=== PATIENT | female | born 1960 | race Caucasian/White ===

== ENCOUNTER 2019-01-29 17:11 | Emergency (ER) | payer BC ==
[2019-01-29] MEDS ORDERED: Sodium Chloride 0.9% 1000 ML 1,000 ML IV STA (17:24)
--- NOTE | 2019-01-29 17:24 | ERPHSYRPT ---
- History of Present Illness Source: patient Exam Limitations: no limitations Timing/Duration: today, sudden Severity: moderate Character of Deficits: other (left ear decreased hearing with unsteady gait and dizziness) Deficits: off balance Baseline/Normal Cognition: alert oriented x 3 Current Cognition: alert oriented x 3 Baseline Gait: walks w/o assistance Associated Symptoms: nausea, trouble walking, No confusion, No fatigue, No fever , No chills, No loss of consciousness, No vomiting, No weakness, No insomnia, No muscle spasms, No numbness/tingling in legs/feet, No paresthesia, No ringing in ears, No seizures, No slurred speech, No vision changes, No chest pain, No headache <ANDREW LEAL - Last Filed: 01/29/19 19:07> <RUSS BURKETT - Last Filed: 01/29/19 19:22> - History of Present Illness Time Seen by Provider: 01/29/19 17:15 Physician History: Patient had sudden onset of unsteadiness, dizziness, nausea, sweating and left ear decreased hearing prior to coming into the emergency department. (ANDREW LEAL) Allergies/Adverse Reactions: No Known Drug Allergies Allergy (Unverified 01/29/19 17:24) Home Medications: Garlic 1 ea DAILY 01/29/19 [History] Multivitamin [Multivitamins] 1 ea DAILY 01/29/19 [History] - Review of Systems Constitutional: No Fever, No Chills Eyes: No Eye Pain, No Vision Changes Ears, Nose, & Throat: Hearing Changes, No Ear Pain, No Ear Discharge, No Tinnitus, No Nose Congestion, No Nose Discharge, No Hoarse, No Painful Swallowing Respiratory: No Cough, No Dyspnea Cardiac: No Chest Pain, No Edema, No Syncope Abdominal/Gastrointestinal: Nausea, No Abdominal Pain, No Vomiting, No Diarrhea Genitourinary Symptoms: No Dysuria, No Hematuria, No Flank Pain Musculoskeletal: No Back Pain, No Neck Pain Skin: No Rash Neurological: Dizziness, No Focal Weakness, No Headache, No Lethargy, No Paralysis, No Seizure, No Sensory Changes, No Vertigo Psychological: No Anxiety Endocrine: No Symptoms, No Polyuria Hematologic/Lymphatic: No Easy Bleeding, No Easy Bruising All Other Systems: Reviewed and Negative <ANDREW LEAL - Last Filed: 01/29/19 19:07> - Ju[place] Coma Scale Best Eye Response (Juvenal): (4) open spontaneously Best Verbal Response (Juvenal): (5) oriented Best Motor Response (Juvenal): (6) obeys commands [place] Total: 15 - Physical Exam General Appearance: no apparent distress, alert Eye Exam: bilateral eye: PERRL, EOMI Ears, Nose, Throat Exam: normal ENT inspection, moist mucous membranes Neck Exam: normal inspection, non-tender, supple Respiratory: normal breath sounds, lungs clear, airway intact, No respiratory distress Cardiovascular: regular rate/rhythm, normal heart sounds, normal peripheral pulses, capillary refill <2 sec, No edema Gastrointestinal: soft, No tenderness, No distention Back Exam: normal inspection, No CVA tenderness Extremity Exam: normal inspection, No calf tenderness, No pedal edema, No swelling Peripheral Pulses: dorsalis-pedis (R): 2+, dorsalis-pedis (L): 2+ Mental Status: alert, 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 Exam: normal hearing, normal speech, PERRL, tongue midline, No abnormal eye position, No facial droop, No facial weakness Coordination/Gait: normal finger to nose, normal cerebellar function Motor/Sensory: no motor deficit, no sensory deficit DTR: ankle (R): 2+, ankle (L): 2+ Skin Exam: normal color, warm, dry, No rash, No jaundice, No cyanosis SpO2 Interpretation: normal O2 Delivery: Room Air <ANDREW LEAL - Last Filed: 01/29/19 19:07> - Nursing Vital Signs Nursing Vital Signs: Initial Vital Signs Temperature 98.7 F 01/29/19 17:15 Pulse Rate 80 01/29/19 17:15 Respiratory Rate 18 01/29/19 17:15 Blood Pressure 155/90 01/29/19 17:15 O2 Sat by Pulse Oximetry 97 01/29/19 17:15 Pain Scale Pain Intensity 0 - Course Nursing assessment & vital signs reviewed: Yes EKG Interpreted by Me: RATE (77), Sinus Rhythm, NORMAL AXIS, NORMAL INTERVALS, NORMAL QRS, NORMAL ST-T, Other (rare PVC; negative previous EKG available for comparison) - Radiology Exams Chest X-ray Interpretation: Interpreted by me, Reviewed by me, No Pneumonia, No Pneumothorax, Nml Heart Size, No Infiltrates, Nml Mediastinum, Other (negative for any acute cardiopulmonary disease) - CT Exams Head CT Interpretation: No Fracture, No/Intracranial Hemorrhag, Other (per radiologist interpretation: Postoperative changes in the left craniotomy. There is a small focus of encephalomalacia due to the craniotomy site. MRI imaging is recommended to fully assess residual recurrent disease.) <ANDREW LEAL - Last Filed: 01/29/19 19:07> Ordered Tests: Active Orders 24 hr Category Date Time Status Accucheck STAT Care 01/29/19 17:24 Active Nuclear Medicine Technician STAT Care 01/29/19 17:26 Active EKG-ER Only STAT Care 01/29/19 17:24 Active IV Insertion STAT Care 01/29/19 17:24 Active NPO (ED) STAT Care 01/29/19 17:25 Active Pulse Oximetry (ED) STAT Care 01/29/19 17:24 Active CHEST 1 VIEW (PORTABLE) Stat Exams 01/29/19 17:25 Taken HEAD WITHOUT CONTRAST [CT] Stat Exams 01/29/19 17:25 Taken CBC W DIFF Stat Lab 01/29/19 17:30 Completed CMP Stat Lab 01/29/19 17:30 Completed CULTURE,URINE Stat Lab 01/29/19 18:16 Received Lactic Acid Stat Lab 01/29/19 17:43 Results MAGNESIUM Stat Lab 01/29/19 17:30 Completed PROTIME WITH INR Stat Lab 01/29/19 17:30 Completed PTT Stat Lab 01/29/19 17:30 Completed UA W/RFX UR CULTURE Stat Lab 01/29/19 18:16 Completed Medication Summary Discontinued Medications Generic Name Dose Route Start Last Admin Trade Name Freq PRN Reason Stop Dose Admin Diphenhydramine HCl 25 mg 01/29/19 17:26 01/29/19 17:41 Benadryl 50 Mg/Ml IV 01/29/19 17:27 25 mg STAT ONE Administration Diphenhydramine HCl Confirm 01/29/19 17:40 Benadryl 50 Mg/Ml Administered 01/29/19 17:41 Dose 50 mg .ROUTE .STK-MED ONE Sodium Chloride 1,000 mls @ 999 mls/hr 01/29/19 17:24 01/29/19 17:41 Sodium Chloride 0.9% 1000 Ml IV 01/29/19 18:24 999 mls/hr .Q1H1M STA Administration Sodium Chloride Confirm 01/29/19 17:41 Sodium Chloride 0.9% 1000 Ml Administered 01/29/19 17:42 Dose 1,000 mls @ ud .ROUTE .STK-MED ONE Ceftriaxone Sodium/Dextrose 1 g in 50 mls @ 100 mls/hr 01/29/19 18:41 18:47 Rocephin 1 Gm-D5w 50 Ml Bag IV 01/29/19 19:10 100 ml/hr STAT STA 100 mls/hr Administration Ceftriaxone Sodium/Dextrose Confirm 01/29/19 18:45 Rocephin 1 Gm-D5w 50 Ml Bag Administered 01/29/19 18:46 Dose 1 g in 50 mls @ ud IV .STK-MED ONE Potassium Chloride 40 meq 01/29/19 18:18 01/29/19 18:24 Klor Con 10 Meq PO 01/29/19 18:19 40 meq STAT ONE Administration Potassium Chloride Confirm 01/29/19 18:23 Klor Con 10 Meq Administered 01/29/19 18:24 Dose 40 meq PO .STK-MED ONE Lab/Rad Data: Laboratory Result Diagrams 01/29/19 17:30 01/29/19 17:30 Laboratory Results 01/29/19 01/29/19 01/29/19 Range/Units 18:16 17:43 17:30 WBC (4.0-10.5) K/mm3 RBC (4.1-5.4) M/mm3 Hgb (12.0-16.0) gm/dl Hct (35-47) % MCV (78-100) fl MCH (26-32) pg MCHC (32-36) g/dl RDW (11.5-14.0) % Plt Count (150-450) K/mm3 MPV (6-9.5) fl Gran % (36.0-66.0) % Eos # (Auto) (0-0.5) Absolute Lymphs (auto) (1.0-4.6) Absolute Monos (auto) (0.0-1.3) Lymphocytes % (24.0-44.0) % Monocytes % (0.0-12.0) % Eosinophils % (0.00-5.0) % Basophils % (0.0-0.4) % Absolute Granulocytes (1.4-6.9) Basophils # (0-0.4) PT (9.95-12.35) SECONDS INR (0.8-3.0) APTT (25.3-37.0) SECONDS Sodium (137-145) mmol/L Potassium (3.5-5.1) mmol/L Chloride (98-107) mmol/L Carbon Dioxide (22-30) mmol/L Anion Gap (5-15) MEQ/L BUN (7-17) mg/dL Creatinine (0.52-1.04) mg/dL Estimated GFR ML/MIN Glucose (74-106) mg/dL Lactic Acid 2.4 H (0.4-2.0) Calcium (8.4-10.2) mg/dL Magnesium 2.2 (1.6-2.3) mg/dL Total Bilirubin (0.2-1.3) mg/dL AST (14-36) U/L ALT (0-35) U/L Alkaline Phosphatase (38-126) U/L Serum Total Protein (6.3-8.2) g/dL Albumin (3.5-5.0) g/dL Urine Color YELLOW (YELLOW) Urine Appearance SLIGHTLY CLOUDY (CLEAR) Urine pH 5.0 (5-6) Ur Specific [place] 1.020 (1.005-1.025) Urine Protein NEGATIVE (Negative) Urine Ketones TRACE (NEGATIVE) Urine Blood NEGATIVE (0-5) Viet/ul Urine Nitrite NEGATIVE (NEGATIVE) Urine Bilirubin NEGATIVE (NEGATIVE) Urine Urobilinogen NEGATIVE (0-1) mg/dL Ur Leukocyte Esterase MODERATE (NEGATIVE) Urine WBC (Auto) 6-10 (0-5) /HPF Urine RBC (Auto) NONE (0-2) /HPF U Epithel Cells (Auto) NONE (FEW) /HPF Urine Bacteria (Auto) NONE (NEGATIVE) /HPF Urine Mucus (Auto) SLIGHT (NEGATIVE) /HPF Urine Culture Reflexed YES (NO) Urine Glucose NEGATIVE (NEGATIVE) mg/dL 01/29/19 01/29/19 01/29/19 Range/Units 17:30 17:30 17:30 WBC 7.4 (4.0-10.5) K/mm3 RBC 4.56 (4.1-5.4) M/mm3 Hgb 14.2 (12.0-16.0) gm/dl Hct 44.3 (35-47) % MCV 97.1 (78-100) fl MCH 31.1 (26-32) pg MCHC 32.1 (32-36) g/dl RDW 13.1 (11.5-14.0) % Plt Count 233 (150-450) K/mm3 MPV 11.7 H (6-9.5) fl Gran % 54.8 (36.0-66.0) % Eos # (Auto) 0.04 (0-0.5) Absolute Lymphs (auto) 2.66 (1.0-4.6) Absolute Monos (auto) 0.62 (0.0-1.3) Lymphocytes % 36.0 (24.0-44.0) % Monocytes % 8.4 (0.0-12.0) % Eosinophils % 0.5 (0.00-5.0) % Basophils % 0.3 (0.0-0.4) % Absolute Granulocytes 4.04 (1.4-6.9) Basophils # 0.02 (0-0.4) PT 11.7 (9.95-12.35) SECONDS INR 1.03 (0.8-3.0) APTT 31.0 (25.3-37.0) SECONDS Sodium 143 (137-145) mmol/L Potassium 3.4 L (3.5-5.1) mmol/L Chloride 111 H (98-107) mmol/L Carbon Dioxide 21 L (22-30) mmol/L Anion Gap 15.0 (5-15) MEQ/L BUN 15 (7-17) mg/dL Creatinine 0.71 (0.52-1.04) mg/dL Estimated GFR > 60.0 ML/MIN Glucose 137 H (74-106) mg/dL Lactic Acid (0.4-2.0) Calcium 9.6 (8.4-10.2) mg/dL Magnesium (1.6-2.3) mg/dL Total Bilirubin 0.50 (0.2-1.3) mg/dL AST 24 (14-36) U/L ALT 18 (0-35) U/L Alkaline Phosphatase 56 (38-126) U/L Serum Total Protein 7.8 (6.3-8.2) g/dL Albumin 4.7 (3.5-5.0) g/dL Urine Color (YELLOW) Urine Appearance (CLEAR) Urine pH (5-6) Ur Specific [place] (1.005-1.025) Urine Protein (Negative) Urine Ketones (NEGATIVE) Urine Blood (0-5) Viet/ul Urine Nitrite (NEGATIVE) Urine Bilirubin (NEGATIVE) Urine Urobilinogen (0-1) mg/dL Ur Leukocyte Esterase (NEGATIVE) Urine WBC (Auto) (0-5) /HPF Urine RBC (Auto) (0-2) /HPF U Epithel Cells (Auto) (FEW) /HPF Urine Bacteria (Auto) (NEGATIVE) /HPF Urine Mucus (Auto) (NEGATIVE) /HPF Urine Culture Reflexed (NO) Urine Glucose (NEGATIVE) mg/dL - Progress Progress: improved Counseled pt/family regarding: lab results, diagnosis, need for follow-up, rad results <ANDREW LEAL - Last Filed: 01/29/19 19:07> - Progress Progress Note: 01/29/19 18:34 Dizziness, nausea and diaphoresis has resolved. Patient has been in sinus rhythm on the surveillance system monitor throughout her time in the emergency Department thus far. 01/29/19 19:00 Patient was discussed with Dr Burkett, [facility] emergency department attending and care was transferred to Dr Burkett. Final disposition of the patient will be performed by Dr Burkett after re-evaluation of the patient and all information has been returned in regards to labs, imaging and any specialist consultation of the patient. (ANDREW LEAL) <ANDREW LEAL - Last Filed: 01/29/19 19:07> - Departure Departure Disposition: Home Critical Care Time: No <RUSS BURKETT - Last Filed: 01/29/19 19:22> - Departure Clinical Impression: Dizziness, Hypokalemia, Elevated blood pressure reading without diagnosis of hypertension UTI (urinary tract infection) Qualifiers: Urinary tract infection type: site unspecified Hematuria presence: without hematuria Qualified Code(s): N39.0 - Urinary tract infection, site not specified Condition: Stable Referrals: KYRIE MARQUEZ DO [Primary Care Provider] - Additional Instructions: drink plenty of fluids. follow up with your primary doctor for further management. Prescriptions: Smz/Tmp Ds Tablet [Bactrim Ds Tablet] 1 udtab PO BID #14 tablet
[2019-01-29] MEDS ORDERED: BENADRYL 50 MG/ML IV ONE (17:26)
[2019-01-29] MEDS ORDERED: BENADRYL 50 MG/ML ONE (17:40)
[2019-01-29] MEDS ORDERED: Sodium Chloride 0.9% 1000 ML 1,000 ML ONE (17:41)
[2019-01-29 17:44] LABS: Lactic Acid 2.4 (0.4-2.0)
[2019-01-29 17:46] LABS: BASOPHIL % 0.3 % (0.0-0.4); Basophil (Absolute #) 0.02 (0-0.4); Eosinophil % 0.5 % (0.00-5.0); Eosinophil (Absolute #) 0.04 (0-0.5); Granulocyte Absolute (ANC) 4.04 (1.4-6.9); Granulocytes % 54.8 % (36.0-66.0); Hematocrit 44.3 % (35-47); Hemoglobin 14.2 gm/dl (12.0-16.0); Lymphocyte (Absolute #) 2.66 (1.0-4.6); Mean Cell Volume 97.1 fl (78-100); Mean Corpuscular Hemoglobin 31.1 pg (26-32); Mean Corpuscular Hgb Concent. 32.1 g/dl (32-36); Mean Platelet Volume 11.7 fl (6-9.5); Monocyte (Absolute #) 0.62 (0.0-1.3); Monocytes % 8.4 % (0.0-12.0); Platelet Count 233 K/mm3 (150-450); Red Blood Count 4.56 M/mm3 (4.1-5.4); Red Cell Distribution Width 13.1 % (11.5-14.0); White Blood Count 7.4 K/mm3 (4.0-10.5)
[2019-01-29 17:52] LABS: INR 1.03 (0.8-3.0); PROTIME 11.7 SECONDS (9.95-12.35)
[2019-01-29 17:55] VITALS: O2SAT 98
[2019-01-29 17:59] LABS: ALBUMIN 4.7 g/dL (3.5-5.0); ALKALINE PHOSPHATASE 56 U/L (38-126); BLOOD UREA NITROGEN 15 mg/dL (7-17); CHLORIDE 111 mmol/L (98-107); Calcium 9.6 mg/dL (8.4-10.2); Carbon Dioxide 21 mmol/L (22-30); Creatinine 1 0.71 mg/dL (0.52-1.04); Glucose 137 mg/dL (74-106); Potassium 3.4 mmol/L (3.5-5.1); SGOT/AST 24 U/L (14-36); SGPT/ALT 18 U/L (0-35); SODIUM 143 mmol/L (137-145); Total Protein 7.8 g/dL (6.3-8.2)
[2019-01-29] MEDS ORDERED: Klor Con 10 MEQ PO ONE ×2 (18:18→18:23)
[2019-01-29 18:30] LABS: Appearance SLIGHTLY CLOUDY (CLEAR); Bilirubin NEGATIVE (NEGATIVE); Blood NEGATIVE Ery/ul (0-5); Glucose NEGATIVE (NEGATIVE); Ketones TRACE (NEGATIVE); Leukocyte Esterase MODERATE (NEGATIVE); Mucus SLIGHT /HPF (NEGATIVE); Nitrite NEGATIVE (NEGATIVE); Protein,Urine Dip NEGATIVE (Negative); Urobilinogen NEGATIVE mg/dL (0-1)
[2019-01-29] MEDS ORDERED: ROCEPHIN 1 Gm-D5w 50 ml Bag** 1 G/50 ML IVPB IV STA (18:41)
[2019-01-29] MEDS ORDERED: ROCEPHIN 1 Gm-D5w 50 ml Bag** 1 G/50 ML IVPB IV ONE (18:45)
[2019-01-29 19:40] VITALS: BP 150/70; PULSE 75
--- NOTE | 2019-01-30 08:58 | XRAY ---
Indication: Dizziness, nausea, and vomiting. Comparison: None Portable chest demonstrates minimal left base fibrosis/scarring. Remaining heart and lungs normal with a few incidental mediastinal calcified nodes. Bony thorax intact with minimal degenerative changes and scoliosis. Impression: Nonacute chest with chronic features.
--- NOTE | 2019-01-30 09:00 | XRAY ---
Indication: Dizziness, nausea, and vomiting. Multiple contiguous axial images obtained through the head without contrast. Comparison: None There has been left parietal craniotomy with small focus of underlying encephalomalacia. No acute intracranial hemorrhage, hydrocephalus, or mass effect. Uriostegui-white matter differentiation preserved. Fourth ventricle is midline. Remaining bony calvarium intact. Visualized paranasal sinuses and mastoid air cells are clear. Impression: Left craniotomy with underlying encephalomalacia. No acute intracranial abnormalities. Comment: Preliminary interpretation was made by [facility]. No critical discrepancy. CT DI 70.77
== END 2019-01-29 19:50 | disposition home or self-care (01) ==
LOC: ED 17:11
DX: R42 Dizziness and giddiness (principal); N39.0 Urinary tract infection, site not specified; E87.6 Hypokalemia
CPT/HCPCS: 36415; 70450; 71045; 80053; 81001; 82962; 83605; 83735; 85025; 85610; 85730; 87086; 93005; 93041; 94760; 96360; 96365; 96374; 99284; J0696; J1200; A9270-GY